=== PATIENT | male | born 1960 | race Two or more races ===

== ENCOUNTER 2022-05-04 19:21 | Inpatient (IN) | payer OTHER ==
[~2022-05-04] VITALS: Ht 185.4 cm; Wt 98.4 kg
[2022-05-04] MEDS ORDERED: GLUMETZA1000 MG PO (19:33)
[2022-05-04] MEDS ORDERED: GLIMEPIRIDE4 MG PO (19:33)
[2022-05-04] MEDS ORDERED: GLIMEPIRIDE2 MG PO (19:34)
[2022-05-04] MEDS ORDERED: LOTREL 10-40 M1 EACH PO (19:34)
[2022-05-06] MEDS ORDERED: MAXIMUM D3325 MCG (11:24)
== END 2022-05-10 17:27 | disposition home or self-care (01) | DRG 602 ==
LOC: ER 19:21 → SEC-K 05-05 11:52 → MEDI 05-05 14:13
PROVIDERS: ADMIT Internal Medicine; ATTEND Internal Medicine
DX: L03.116 Cellulitis of left lower limb (principal); A41.9 Sepsis, unspecified organism; E13.628 Other specified diabetes mellitus with other skin complications; E11.65 Type 2 diabetes mellitus with hyperglycemia; R50.9 Fever, unspecified; J32.0 Chronic maxillary sinusitis; T60.0X1A Toxic effect of organophosphate and carbamate insecticides, accidental (unintentional), initial encounter; Y92.018 Other place in single-family (private) house as the place of occurrence of the external cause; Z88.0 Allergy status to penicillin; Z79.84 Long term (current) use of oral hypoglycemic drugs

== ENCOUNTER 2022-12-20 17:16 | Emergency (ER) | payer OTHER ==
[~2022-12-20] VITALS: Ht 177.8 cm; Wt 98.0 kg
[~2022-12-20 17:16] MED LIST: GLIMEPIRIDE2 MG PO; GLIMEPIRIDE4 MG PO; GLUMETZA1000 MG PO; LOTREL 10-40 M1 EACH PO; MAXIMUM D3325 MCG
[2022-12-21] MEDS ORDERED: BENADRYL25 MG PO (17:29)
== END 2022-12-20 19:06 | disposition home or self-care (01) ==
LOC: ER 17:16
DX: T78.40XA Allergy, unspecified, initial encounter (principal); Z88.0 Allergy status to penicillin

== ENCOUNTER 2022-12-21 14:24 | Emergency (ER) | payer OTHER ==
[~2022-12-21] VITALS: Ht 177.8 cm; Wt 98.0 kg
[2022-12-21] MEDS ORDERED: BENADRYL25 MG PO (17:29)
== END 2022-12-21 17:38 | disposition home or self-care (01) ==
LOC: ER 14:24
DX: T78.40XA Allergy, unspecified, initial encounter (principal); R22.0 Localized swelling, mass and lump, head; Z88.0 Allergy status to penicillin